=== PATIENT | female | born 1985 | race African-American/Black ===

== ENCOUNTER 2020-05-19 11:41 | Outpatient (RCR) | payer MEDICAID ==
[~2020-05-19] VITALS: Ht 152 cm; Wt 43.1 kg
== END 2020-05-19 11:43 | disposition home or self-care (01) ==
LOC: PREOP 11:41
PROVIDERS: ATTEND Obstetrics & Gynecology
DX: Z01.818 Encounter for other preprocedural examination (principal)

== ENCOUNTER 2020-05-24 11:06 | Inpatient (IN) | payer MEDICAID ==
[~2020-05-24] VITALS: Ht 152 cm; Wt 43.1 kg
[2020-05-24] VITALS (12 sets, daily range): BP systolic 131–157; BP diastolic 92–114
[2020-05-24] MEDS ORDERED: metroNIDAZOLE 500MG/100ML IVPB 100 ML IV ONE (11:15)
[2020-05-24] MEDS ORDERED: LACTATED RINGERS 1,000 ML IV PRN (11:15)
[2020-05-24] MEDS ORDERED: ceFAZolin INJECTION 1,000 MG in WATER (STERILE) FOR INJECTION 10 ML IV ONE (11:15)
[2020-05-24] MEDS ORDERED: BUPIVACAINE 0.25% 30 ML (SENSORCAINE) VIAL ONE (11:19)
[2020-05-24] MEDS ORDERED: CATHETER FLUSH 10 ML SYR IV PRN (11:30)
--- NOTE | 2020-05-24 11:31 | Progress Note-Pre Operative ---
Pre-Operative Progress Note H&P Reviewed The H&P was reviewed, patient examined and no changes noted. Date Seen by Provider: May 24, 2020 Time Seen by Provider: 11:30 Date H&P Reviewed: May 24, 2020 Time H&P Reviewed: 11:25 Pre-Operative Diagnosis: Fibroid uterus, CPP KARI CALDWELL DO May 24, 2020 11:31
[2020-05-24] MEDS ORDERED: FAMOTIDINE 20MG/2ML IV (PEPCID) ONE (11:37)
[2020-05-24] MEDS ORDERED: fentaNYL INJECTION 100 MCG/2 ML AMP ONE ×2 (11:38→14:07)
[2020-05-24] MEDS ORDERED: GLYCOPYRROLATE 0.2 MG/ML (ROBINUL) 2 ML VIAL ONE (11:38)
[2020-05-24] MEDS ORDERED: SEVOFLURANE (ULTANE) 15 ML INHAL SOLN ONE ×2 (11:38→13:33)
[2020-05-24] MEDS ORDERED: proPOfol 200 MG/20 ML (DIPRIVAN) VIAL IV ONE (11:38)
[2020-05-24] MEDS ORDERED: NEOSTIGMINE 3 MG/3 ML VIAL ONE (11:38)
[2020-05-24] MEDS ORDERED: LIDOCAINE PF 2% 5 ML (XYLOCAINE) VIAL ONE (11:38)
[2020-05-24] MEDS ORDERED: MIDAZOLAM 2 MG/2 ML (VERSED) VIAL ONE ×2 (11:38→11:47)
[2020-05-24] MEDS ORDERED: ROCURONIUM 10 MG/ML 5 ML SYRINGE IV ONE (11:38)
[2020-05-24] MEDS ORDERED: ONDANSETRON 4 MG/2 ML (SDV) Z0FRAN ONE ×2 (11:38)
[2020-05-24 11:42] LABS: BASOPHILS # (AUTO) 0.1 10^3/uL (0.0-0.1); BASOPHILS % (AUTO) 1 % (0-10); EOSINOPHILS # (AUTO) 0.4 10^3/uL (0.0-0.3); EOSINOPHILS % (AUTO) 5 % (0-10); HEMATOCRIT 47 % (35-52); HEMOGLOBIN 15.5 g/dL (11.5-16.0); LYMPHOCYTES # (AUTO) 1.7 10^3/uL (1.0-4.0); LYMPHOCYTES % (AUTO) 24 % (12-44); MEAN CORPUSCULAR HEMOGLOBIN 29 pg (25-34); MEAN CORPUSCULAR HGB CONC 33 g/dL (32-36); MEAN CORPUSCULAR VOLUME 89 fL (80-99); MONOCYTES # (AUTO) 0.7 10^3/uL (0.0-1.0); MONOCYTES % (AUTO) 9 % (0-12); NEUTROPHILS # (AUTO) 4.4 10^3/uL (1.8-7.8); NEUTROPHILS % (AUTO) 61 % (42-75); PLATELET COUNT 363 10^3/uL (130-400); WHITE BLOOD COUNT 7.3 10^3/uL (4.3-11.0)
--- NOTE | 2020-05-24 11:43 | Discharge Inst-Women's Service ---
Discharge Inst-Women's Serv Depart Medication/Instructions New, Converted or Re-Newed RX: RX on Chart Problems Reviewed?: Yes Consults/Follow Up Additional Follow Up: Yes Orders/Referrals Dr. Mendoza in 7-10 days and in 8 weeks Activity Activity: Activity as Tolerated Driving Instructions: You May Drive (do not drive while still requirng hydrocodone for pain control) NO SMOKING: NO SMOKING Nothing Inside Vagina: No Douching, No Bergman Diet Discharge Diet: No Restrictions Symptoms to Report to : Bleeding Excessive, Pain Increased, Fever Over 101 Degrees F, Vaginal Bleeding Increase, Questions/Concerns For Any Problems or Questions: Contact Your Physician Skin/Wound Care Infection Signs and Symptoms: Increased Redness, Foul Odor of Wound, Increased Drainage, Skin Itchy or Has a Rash, Increased Swelling, Temperature Above 101 F Operative Area Clean and Dry: Keep Incision Clean/Dry Stitches/Bertha/Dermabond: Dermabond, Care of Stitches Bathing Instructions: KARI Montero DO May 24, 2020 11:43
[2020-05-24] MEDS ORDERED: MIDAZOLAM 2 MG/2 ML (VERSED) VIAL IV ONE (11:45)
[2020-05-24] MEDS ORDERED: HYDR-34 PO (11:45)
[2020-05-24] MEDS ORDERED: HYDROmorphone 2 MG/ML VIAL (DILAUDID) IV PRN ×2 (11:45→14:00)
[2020-05-24] MEDS ORDERED: ZOLPIDEM 5 MG (AMBIEN) TAB PO PRN (11:45)
[2020-05-24] MEDS ORDERED: FAMOTIDINE 20MG/2ML IV (PEPCID) IV ONE (11:45)
[2020-05-24] MEDS ORDERED: CHLORASEPTIC LOZENGE MM PRN (11:45)
[2020-05-24] MEDS ORDERED: SIME80TA16 PO (11:45)
[2020-05-24] MEDS ORDERED: DCS100C PO (11:45)
[2020-05-24] MEDS ORDERED: ONDANSETRON 4 MG/2 ML (SDV) Z0FRAN IV PRN (11:45)
[2020-05-24] MEDS ORDERED: ANTACID SUSP 30 ML UDC (MYLANTA) PO PRN (11:45)
[2020-05-24] MEDS ORDERED: ONDANSETRON 4 MG/2 ML (SDV) Z0FRAN IV ONE (11:45)
[2020-05-24] MEDS ORDERED: IBUP-844 PO (11:45)
[2020-05-24] MEDS: LACTATED RINGERS 1,000 ML IV SCH ×4 (11:46→21:44)
[2020-05-24] MEDS ORDERED: RT-ALBUINH INH (12:12)
[2020-05-24] MEDS ORDERED: HYDROmorphone 2 MG/ML VIAL (DILAUDID) ONE (12:44)
[2020-05-24] MEDS ORDERED: ONDANSETRON 4 MG/2 ML (SDV) Z0FRAN IVP PRN (14:00)
[2020-05-24] MEDS ORDERED: fentaNYL INJECTION 100 MCG/2 ML AMP IVP ONE (14:00)
[2020-05-24] MEDS ORDERED: morphine INJ 10 MG/ML 1ML (SYR OR VIAL) IVP ONE (14:00)
[2020-05-24] MEDS ORDERED: MEPERIDINE (DEMEROL) INJ 50 MG/ML IVP ONE (14:00)
[2020-05-24] MEDS ORDERED: KETOROLAC 30 MG/ML VIAL ONE (14:22)
[2020-05-24] MEDS: KETOROLAC 30 MG/ML VIAL IV PRN ×2 (14:30→21:44)
--- NOTE | 2020-05-24 14:50 | NUR ---
Pt to room 304 via bed accompanied by PACU staff. This RN and Stephanie Rivera RN to bedside for report. Report rec'd from Tawanna Gomez RN. Pt awake and writhing in pain. Calf SCD's on and activated, Lambert catheter patent, draining clear yellow urine to dependent drainage. VS taken, IV fluids to pump. Assessment completed. Pt c/o significant pain just with RN moving blankets. Pt requiring much encouragement to get through assessment. Island dressing noted to be mostly saturated with bright red blood, area marked. No distention or induration noted. Ice pack to abd. Pt requesting carbonated beverage, sprite and water provided.
--- NOTE | 2020-05-24 15:20 | Consultation - Surgery ---
History of Present Illness History of Present Illness Patient Consulted On(dimitri/time) 05/24/20 15:14 Time Seen by Provider: 12:41 History of Present Illness Surgery asked to do intraoperative consult secondary to enterotomy. HPI: pt was undergoing Hysterectomy for painful bleeding. Pt was intubated and asleep; unable to obtain anything from pt. During Robotic Hysterectomy procedure, initial trochar was placed into bowel. Allergies and Home Medications Allergies Coded Allergies: Latex, Natural Rubber (Verified Allergy, Severe, ANAPHYLAXIS, 05/19/20) Home Medications Albuterol Sulfate 1 Puff Puff, 2 PUFF INH Q4H, (Reported) 1 PUFF = 90 MCG Docusate Sodium 100 Mg Capsule, 100 MG PO BID PRN for CONSTIPATION-1ST LINE Prescribed by: KARI CALDWELL on 05/24/20 1145 Hydrocodone Bit/Acetaminophen 1 Ea Tablet, 2 EA PO Q6H PRN for Pain-See Instructions Prescribed by: KARI CALDWELL on 05/24/20 1145 Ibuprofen 600 Mg Tablet, 600 MG PO Q6H Prescribed by: KARI CALDWELL on 05/24/20 1145 Simethicone 80 Mg Tab.chew, 40 MG PO TID PRN for INDIGESTION 2ND LINE Prescribed by: KARI CALDWELL on 05/24/20 1145 Patient Home Medication List Home Medication List Reviewed: Yes Past Jeuwrmm-Tcshlx-Ximtsf Hx Patient Social History Alcohol Use: Occasionally Uses Recreational Drug Use: No Smoking Status: Current Everyday Smoker Type Used: Cigarettes 2nd Hand Smoke Exposure: Yes Recent Foreign Travel: No Contact w/Someone Who Travel: No Recent Hopitalizations: No Immunizations Up To Date Date of Influenza Vaccine: May 19, 2019 Seasonal Allergies Seasonal Allergies: No Surgeries History of Surgeries: Yes (HEART X2 CHILD, INTESTINAL BLOCKAGE X3 CHILD, BACK X2, HAND) Respiratory History of Respiratory Disorde: Yes Respiratory Disorders: Asthma Cardiovascular History of Cardiac Disorders: Yes (FOLLOWS WITH DR. CUMMINGS, MILD PH) Cardiac Disorders: Valvular Heart Disease Neurological History of Neurological Disord: No Reproductive System Sexually Transmitted Disease: No HIV/AIDS: No Female Reproductive Disorders: Menstrual Problems Genitourinary History of Genitourinary Disor: Yes Genitourinary Disorders: UTI-Chronic Gastrointestinal History of Gastrointestinal Di: Yes Gastrointestinal Disorders: Chronic Constipation, Chronic Diarrhea Musculoskeletal History of Musculoskeletal Dis: Yes Musculoskeletal Disorders: Arthritis, Chronic Back Pain Endocrine History of Endocrine Disorders: No HEENT History of HEENT Disorders: No Loss of Vision: Denies Hearing Impairment: Denies Cancer History of Cancer: No Psychosocial History of Psychiatric Problem: Yes Behavioral Health Disorders: Anxiety, Depression Integumentary History of Skin or Integumenta: No Blood Transfusions History of Blood Disorders: No Adverse Reaction to a Blood Tr: No (HAS HAD BLOOD WITH NO REACTION) Family Medical History Significant Family History: Diabetes (parents ), Hypertension (parents), Stroke Review of Systems-General ROS-Unable to Obtain: pt intubated Physical Exam-General Problems Physical Exam Vital Signs Vital Signs - First Documented 05/24/20 11:07 Temp 36.8 Pulse 104 Resp 20 B/P (MAP) 145/109 (121) Pulse Ox 100 O2 Delivery Room Air Capillary Refill : General Appearance: WD/WN, no apparent distress HEENT: PERRL/EOMI, other (intubated) Respiratory: lungs clear, normal breath sounds, no respiratory distress, no accessory muscle use Cardiovascular: regular rate, rhythm, no murmur Gastrointestinal: other (abdomen open, for hysterectomy) Extremities: no pedal edema Skin: normal color, warm/dry Data Review Labs Laboratory Tests 05/24/20 11:20: White Blood Count 7.3, Red Blood Count 5.27H, Hemoglobin 15.5, Hematocrit 47, Mean Corpuscular Volume 89, Mean Corpuscular Hemoglobin 29, Mean Corpuscular Hemoglobin Concent 33, Red Cell Distribution Width 13.6, Platelet Count 363, Mean Platelet Volume 11.0, Immature Granulocyte % (Auto) 0, Neutrophils (%) (Auto) 61, Lymphocytes (%) (Auto) 24, Monocytes (%) (Auto) 9, Eosinophils (%) (Auto) 5, Basophils (%) (Auto) 1, Neutrophils # (Auto) 4.4, Lymphocytes # (Auto) 1.7, Monocytes # (Auto) 0.7, Eosinophils # (Auto) 0.4H, Basophils # (Auto) 0.1, Immature Granulocyte # (Auto) 0.0 Assessment/Plan Assessment/Plan Assessment/Plan Iatrogenic Enterotomy Adhesions Plan primary closure of enterotomy, takedown of adhesion and appendectomy. JORDIN LOPEZ DO May 24, 2020 15:20
--- NOTE | 2020-05-24 15:22 | Progress Note-Post Operative ---
Post-Operative Progess Note Surgeon (s)/Chef German (s) Surgeon JORDIN LOPEZ DO Chef German: Kelly Pre-Operative Diagnosis Iatrogenic Enterotomy, Adhesions Post-Operative Diagnosis same Procedure & Operative Findings Date of Procedure 05/24/20 Procedure Performed/Findings Primary repair of Enterotomy Appendectomy Anesthesia Type GET Estimated Blood Loss Estimated blood loss (mL): scant Specimens/Packing Specimens Removed appendix JORDIN LOPEZ DO May 24, 2020 15:22
--- NOTE | 2020-05-24 15:40 | NUR ---
Dr Mendoza on unit, notified of pt c/o significant pain, writhing in pain, dressing saturated. to room. ABD pad and abd binder applied to pt abdomen per RN and Dr. Pt verbalizes a little relief but still c/o significant pain and that "something ain't right." RN's and Dr. Mendoza remain at bedside. Order rec'd for .25mg ativan at this time.
[2020-05-24] MEDS ORDERED: LORazepam INJ 2 MG/ML (ATIVAN) VIAL ONE (15:52)
[2020-05-24] MEDS ORDERED: LORazepam INJ 2 MG/ML (ATIVAN) VIAL IVP PRN (16:00)
--- NOTE | 2020-05-24 16:05 | NUR ---
Pt calming after ativan dosage. Spo2 noted to drop to lower 80%'s but would rise when pt stimulated to take a deep breath. 2L supplement O2 provided via nasal cannula at this time. Pt Spo2 remains upper 90's-100%. Will continue to monitor.
--- NOTE | 2020-05-24 16:15 | NUR ---
Pt sleeping soundly, Spo2 remains 100%. No s/s of distress noted.
--- NOTE | 2020-05-24 16:40 | NUR ---
Pt continues sleeping. Spo2 remains 100%. Supplemental O2 D/C'd.
--- NOTE | 2020-05-24 18:00 | NUR ---
Pt continues sleeping soundly, VS taken. Pt assisted with repositioning. No needs or concerns voiced at this time.
--- NOTE | 2020-05-24 21:00 | NUR ---
report from ed CARROLL
--- NOTE | 2020-05-24 21:20 | NUR ---
RN to room, pt sleeping at this time, VS taken, pt starting to wake up, discussed plan of care with pt. Assisted pt with calling family. Fresh ice water and sprite given per pt request and jello. Pt remains on the phone as RN leaving room.
--- NOTE | 2020-05-24 23:00 | NUR ---
Pt given Algerian ice per request and assisted with position change, warmer blanket given.
--- NOTE | 2020-05-25 00:29 | OPERATIVE REPORT ---
DATE OF SERVICE: PREOPERATIVE DIAGNOSES: 1. A 35-year-old female with abnormal uterine bleeding. 2. Fibroid uterus. 3. Chronic pelvic pain. POSTOPERATIVE: DIAGNOSES: 1. A 35-year-old female with abnormal uterine bleeding. 2. Fibroid uterus. 3. Chronic pelvic pain. 4. Incidental enterotomy with extensive upper abdominal and periumbilical adhesions. SURGEON: Wili Mendoza DO COMMERCIAL MAKEUP ARTIST: Christal Spears DNP, who was necessary for manipulation and retraction throughout the procedure. Intraoperative consultation made to Dr. James Wiley. ANESTHESIA: General endotracheal. ESTIMATED BLOOD LOSS: 150 mL. URINE OUTPUT: 20 mL clear at the end of the procedure. FLUIDS: 1600 mL lactated Ringer's solution. PROCEDURES: Laparoscopic enterotomy with conversion to laparotomy, total abdominal hysterectomy and bilateral salpingectomy, weighing greater than 500 grams, enterotomy repair, appendectomy. SPECIMEN SENT: Appendix, uterus, cervix, bilateral fallopian tubes. INDICATIONS FOR PROCEDURE: This 35-year-old female was a consultation in my office for chronic pelvic pain. FINDINGS: Very large fibroid on ultrasound examination. The patient reported extensive pain, discomfort, bowel movements, especially down in her pelvis and reported that her bowels are rarely regular. I discussed with the patient removal of this fibroid uterus due to the size and discomfort that it was causing her. Risks of the procedure were discussed with the patient in detail including risk of bleeding, infection, damage to surrounding structures including, but not limited to bowel, bladder, ureter, kidneys, possible need for reoperation, postoperative complications that may occur, recovery timeframe involving the procedure, risks from anesthesia and even . After everything was discussed with the patient in detail, consent was obtained in the preoperative area, the patient was taken to the operating room. OPERATIVE REPORT IN DETAIL: Once in the operating room, anesthesia was found to be adequate, she was placed in dorsal lithotomy position, prepped and draped in normal sterile fashion. Timeout was performed. Lambert catheter was placed using sterile technique. A weighted speculum inserted to the patient's vagina. Right angle retractor was utilized. Cervix was grasped at 12 o'clock position using a long Allis clamp and 0 Vicryl suture was then placed in anterior lip of the cervix. I then selected 8 cm uterine manipulator tip and a 4 cm colpotomy ring. The manipulator tip was advanced into the cervix where the balloon was deployed inside the uterus and the colpotomy ring was advanced around the vaginal fornix after which I performed a change of gloves and took my attention to the abdomen where supraumbilically I infiltrated this area using 0.25% Marcaine and make an 8 mm incision with a knife and directed Veress needle through the incision until intraperitoneal placement was confirmed using the saline drop test. I proceeded with insufflation using CO2 gas. Opening pressure of 5 mmHg is noted. I proceeded to max pressure of 15 mmHg, at which point I removed the Veress needle and introduced an 8 mm blunt laparoscopic [place] trocar. Upon camera placement, I am able to visualize the lumen of the bowel, noting that I had performed the enterotomy with placement of my trocar. I decided at that point to perform a laparotomy and call for a surgical consult. I do a midline incision using a knife and carried down to the fascia using Bovie cautery. The fascial incision extended laterally using Bovie cautery, which exposes the peritoneum in midline after I dissected the rectus muscles laterally. The peritoneum was entered using blunt traction where the insufflation was then released through the trocar site. I placed an Mike ring retractor, which offers excellent lateral sidewall retraction and begin the procedure as I am waiting for the general surgeon. I began the procedure with performing the hysterectomy. Performed the following dissection bilaterally. Starting at the uteroovarian ligament, I bipolar cauterized and transected using LigaSure impact device. I then the anterior and posterior leaflets of the broad ligament. Anterior leaflet was taken around the anterior vaginal fornix, posterior leaflet was taken around to the posterior vaginal fornix. In doing so, I am able to skeletonize the uterine vessels laterally, which I bipolar cauterized and transected using the LigaSure device. I am easily able to palpate the anterior vaginal fornix because of my Montse uterine manipulator. I therefore created a colpotomy at 12 o'clock position using the Bovie cautery, took this circumferentially around the vaginal fornix, amputating the cervix away from the vagina. The entire specimen was then removed through the abdominal opening. The fallopian tubes were also removed using bipolar cautery down the mesosalpinx, bipolar cauterizing, sealing and transecting using the LigaSure device after which there was no active bleeding noted from any of my dissection planes or pedicles. I then closed the vaginal cuff using 0 Vicryl suture in interrupted [id number] fashion. Once the vagina was reapproximated, Dr. Wiley arrived and performed an appendectomy and repair of enterotomy. After he has done with his portion of the procedure, I copiously irrigated the pelvis using normal saline. There was no active bleeding noted from any of my dissection planes. I placed FloSeal hemostatic agent over all my planes of dissection, after which I had the patient taken out of steep Trendelenburg and proceeded with closing the fascia peritoneum, rectus muscles all in one layer using a #1 PDS loop in a Smead-Kaufman fashion. After this was reapproximated, the skin reapproximated using luis. Lap and sponge counts were correct at the end of the procedure. Instrument counts correct as well. Lambert catheter was left in place. One gram of Ancef and 500 mg of Flagyl were given preoperatively for infection prophylaxis. Job ID: [id number] DocumentID: [id number] Dictated Date: 05/24/2020 14:16:51 Training Development Manager Date: 05/25/2020 00:28:49 Dictated By: DO DELLA SANTIAGO
--- NOTE | 2020-05-25 01:59 | OPERATIVE REPORT ---
DATE OF SERVICE: 05/24/2020 PREOPERATIVE DIAGNOSIS: Iatrogenic enterotomy adhesions. POSTOPERATIVE DIAGNOSIS: Iatrogenic enterotomy adhesions. PROCEDURES: 1. Primary closure of enterotomy. 2. Appendectomy. SURGEON: James Wiley DO EMERGENCY PLANNING AND RESPONSE MANAGER: Dr. Mendoza. ANESTHESIA: General endotracheal tube. SPECIMEN: Appendix. BLOOD LOSS: Scant. FLUIDS: Per anesthesia. POSTOPERATIVE CONDITION: Stable. INDICATION FOR PROCEDURE: The patient is a 35-year-old female who was undergoing a robotic hysterectomy. Unfortunately, there was an iatrogenic enterotomy performed and needed to get this repaired. She had adhesions, this was another reason she had enterotomy. FINDINGS: The patient had an enterotomy in the small bowel, thought at first that it may have been in the large intestine. She also found to have adhesions and her appendix was stuck up to the falciform ligament covering, coming across the intestine where we needed to go to try and find the enterotomy. PROCEDURE NOTE: The patient was in the operating room. She was intubated. She was asleep undergoing hysterectomy. Unfortunately, while trying to place a trocar, an enterotomy was made. I was asked to consult and then help repair the small intestine. I scrubbed in. Assisted Dr. Mendoza while he was completing the hysterectomy and then once this was complete, started running the bowel from the sigmoid, taken down some adhesions, ran up the descending colon in the midline where Dr. Mendoza he had made an enterotomy. There were lot of adhesions, started taking these down and then encountered the cecum and the appendix going straight into the falciform trying to take, started taking these adhesions down, freeing the cecum up. Because appendix was attached to the falciform, elected to take this and remove it, perform an appendectomy, freeing it up off of the falciform and the mesoappendix and then once this was freed up with Bovie electrocautery, then across the base of the appendix, placed an Endo-SHANTELLE stapler, clamped and fired there by transecting the appendix. Then continued to take down the adhesions in the midline. Finally, able to find small bowel and find the enterotomy. There was no spillage of succuss or intestinal contents, had grasped this with a [place] when we found it and then finished taking down some adhesions. At this point, elected to close it primarily with 3-0 Vicryl, 2 [id number] sutures and 1 simple suture to close this. It closed nicely, copiously irrigated with normal saline, suctioned this out, looked around. There did not appear to be any spillage. The closure looked good and at this point, then allowed Dr. Mendoza to finish his procedure and close the abdomen. Job ID: [id number] DocumentID: [id number] Dictated Date: 05/24/2020 15:33:53 Toll Transmission Worker Date: 05/25/2020 01:58:40 Dictated By: JAMES WILEY DO
[2020-05-25 02:05] VITALS: BP 122/85
[2020-05-25] MEDS ORDERED: KETOROLAC 30 MG/ML VIAL ONE (03:10)
[2020-05-25] MEDS: LACTATED RINGERS 1,000 ML IV SCH ×2 (03:30→21:31)
[2020-05-25] MEDS: IBUPROFEN 600 MG (MOTRIN) TAB PO SCH ×2 (04:29→12:01)
[2020-05-25 06:40] VITALS: BP 121/78
--- NOTE | 2020-05-25 07:51 | Progress Note - Surgery ---
ROBBIN SHETH,MED STUDENT 05/25/20 0751: Subjective Date Seen by a Provider: May 25, 2020 Time Seen by a Provider: 07:15 Subjective/Events-last exam Patient states she is having 9/10 diffuse abdominal pain. She states that she is hungry this morning, though. She states she has not had a bowel movement and is not passing gas yet. She has not urinated since surgery or been up to walk yet either. Denies fever, chills, chest pain, shortness of breath, n/v. Review of Systems General: No Chills HEENT: No Head Aches Pulmonary: No Dyspnea, No Cough Cardiovascular: No: Chest Pain, Edema Gastrointestinal: Abdominal Pain (diffuse, 9/10), Constipation; No: Nausea, Vomiting, Diarrhea Genitourinary: Retention Neurological: No: Numbness, Confusion Objective Exam Vital Signs Date Time Temp Pulse Resp B/P (MAP) Pulse Ox O2 Delivery O2 Flow Rate FiO2 05/25/20 06:40 36.7 81 18 121/78 (92) 97 Room Air 05/25/20 02:05 36.8 79 16 122/85 (97) 98 Room Air 05/24/20 21:20 36.4 98 16 153/110 (124) 98 Room Air 05/24/20 21:20 Room Air 05/24/20 18:00 36.8 97 16 155/114 (128) 100 Room Air 05/24/20 15:15 73 20 143/106 (118) 100 Room Air 05/24/20 14:50 36.4 16 151/99 (116) 99 Room Air 05/24/20 14:50 Room Air 05/24/20 14:50 Room Air 05/24/20 14:50 35.9 70 18 143/103 (116) 100 Room Air 05/24/20 14:40 Room Air 05/24/20 14:40 16 151/99 (116) 99 Room Air 05/24/20 14:30 Room Air 05/24/20 14:30 20 157/101 (119) 100 Room Air 05/24/20 14:20 24 157/100 (119) 100 OxyMask 2 05/24/20 14:15 OxyMask 4 05/24/20 14:10 24 149/105 (120) 100 OxyMask 4 05/24/20 14:00 OxyMask 6 05/24/20 14:00 26 143/94 (110) 100 OxyMask 6 05/24/20 13:50 16 131/92 (105) 100 OxyMask 8 05/24/20 13:48 OxyMask 8 05/24/20 13:48 36.1 16 131/92 (105) 100 OxyMask 8 05/24/20 11:07 36.8 104 20 145/109 (121) 100 Room Air I & O 05/25/20 07:00 Intake Total 4810 ml Output Total 770 ml Balance 4040 ml Capillary Refill : Less Than 3 SecondsLess Than 3 Seconds General Appearance: No Apparent Distress, Thin HEENT: PERRL/EOMI, Moist Mucous Membranes Neck: Supple Respiratory: Lungs Clear, No Accessory Muscle Use, No Respiratory Distress Cardiovascular: Regular Rate, Rhythm, No Edema, No Murmur Peripheral Pulses: 2+ Dorsalis Pedis (R), 2+ Left Dors-Pedis (L), 2+ Radial Pulses (R), 2+ Radial Pulses (L) Gastrointestinal: soft, abnormal bowel sounds (decreased); No distended; tenderness (diffuse), other (clean dressing to midline incision, no drainage noted) Extremity: Normal Capillary Refill, No Calf Tenderness, No Pedal Edema Neurologic/Psychiatric: Alert, Oriented x3, Normal Mood/Affect Skin: Normal Color, Warm/Dry Lymphatic: No Adenopathy Results Lab Laboratory Tests 05/24/20 11:20: White Blood Count 7.3, Red Blood Count 5.27H, Hemoglobin 15.5, Hematocrit 47, Mean Corpuscular Volume 89, Mean Corpuscular Hemoglobin 29, Mean Corpuscular Hemoglobin Concent 33, Red Cell Distribution Width 13.6, Platelet Count 363, Mean Platelet Volume 11.0, Immature Granulocyte % (Auto) 0, Neutrophils (%) (Auto) 61, Lymphocytes (%) (Auto) 24, Monocytes (%) (Auto) 9, Eosinophils (%) (Auto) 5, Basophils (%) (Auto) 1, Neutrophils # (Auto) 4.4, Lymphocytes # (Auto) 1.7, Monocytes # (Auto) 0.7, Eosinophils # (Auto) 0.4H, Basophils # (Auto) 0.1, Immature Granulocyte # (Auto) 0.0 Assessment/Plan Assessment/Plan Assessment/Plan s/p iatrogenic enterotomy with subsequent primary closure and appendectomy- post op day one s/p total abdominal hysterectomy with BSO- post op day one Postoperative urinary retention- continue to monitor IV pain control- switch to oral if tolerated Clear liquid diet Encourage ambulation and IS JAMES WILEY DO 05/25/20 1213: Subjective Time Seen by a Provider: 12:07 Subjective/Events-last exam Pt seen and examined, having sharp shooting pain. Review of Systems Pulmonary: No Dyspnea, No Cough Cardiovascular: No: Chest Pain Gastrointestinal: Abdominal Pain (diffuse, 04/22); No: Nausea, Vomiting Objective Exam General Appearance: Mild Distress HEENT: PERRL/EOMI, Moist Mucous Membranes Respiratory: Lungs Clear, No Accessory Muscle Use, No Respiratory Distress Cardiovascular: Regular Rate, Rhythm, No Murmur Gastrointestinal: soft, tenderness (diffuse), other (clean dressing to midline incision, no drainage noted, abdominal binder in place) Assessment/Plan Assessment/Plan Assessment/Plan S/P Repair of Enterotomy Will add Toradol scheduled, pt encouraged to ambulate and use IS. Supervisory-Addendum Brief Verification & Attestation Participated in pt care: history, MDM, physical Personally performed: exam, history, MDM Care discussed with: Medical Student Procedures: n/a Verification and Attestation of Medical Student E/M Service A medical student performed and documented this service. I then reviewed and verified all information documented by the medical student and made modifications to such information, when appropriate. I personally performed a physical exam, medical decision making and then discussed any differences between the notes and made revisions as necessary to create one note. James Wiley , 05/25/20 , 12:13 ROBBIN SHETH,MED STUDENT May 25, 2020 07:51 JAMES WILEY DO May 25, 2020 12:13
[2020-05-25 08:24] LABS: BASOPHILS % (AUTO) 0 % (0-10); EOSINOPHILS % (AUTO) 0 % (0-10); HEMATOCRIT 35 % (35-52); HEMOGLOBIN 11.8 g/dL (11.5-16.0); LYMPHOCYTES # (AUTO) 0.9 10^3/uL (1.0-4.0); LYMPHOCYTES % (AUTO) 7 % (12-44); MEAN CORPUSCULAR HEMOGLOBIN 29 pg (25-34); MEAN CORPUSCULAR HGB CONC 33 g/dL (32-36); MEAN CORPUSCULAR VOLUME 88 fL (80-99); MEAN PLATELET VOLUME 10.7 fL (9.0-12.2); MONOCYTES # (AUTO) 0.7 10^3/uL (0.0-1.0); MONOCYTES % (AUTO) 6 % (0-12); NEUTROPHILS # (AUTO) 10.9 10^3/uL (1.8-7.8); NEUTROPHILS % (AUTO) 86 % (42-75); PLATELET COUNT 227 10^3/uL (130-400); WHITE BLOOD COUNT 12.6 10^3/uL (4.3-11.0)
[2020-05-25] MEDS: DOCUSATE SODIUM 100 MG (COLACE) CAP PO PRN ×2 (08:26→22:00)
[2020-05-25] MEDS: SIMETHICONE 80 MG (MYLICON) CHEW PO PRN ×2 (08:26→16:29)
[2020-05-25] MEDS: HYDROcodone/APAP 7.5 MG/325 MG (LORTAB, LORCET PLUS) TABLET PO PRN ×3 (08:26→22:00)
[2020-05-25 08:30] VITALS: BP 118/89
--- NOTE | 2020-05-25 08:30 | NUR ---
Pt out of bed - assisted back to bed. Did not attempt to void. 0840 After assessment pt decided she would attempt to void since this RN was present. Ambulated 50 mls. Pt dramatic - but also rates pain 9. Lortab tabs 2 given. Bilateral breathe sounds noted with wheezing. Attempting to cough - with minimal effort due to pain. Pt does smoke and have asthma. Called RT for IS. Hypoactive bowel sounds note. Pt states she is passing small amount of gas.
[2020-05-25 08:55] LABS: BAND NEUTROPHILS 2 %; BASOPHILS % (MANUAL) 0 %; EOSINOPHILS % (MANUAL) 0 %; LYMPHOCYTES % (MANUAL) 6 %; MONOCYTES % (MANUAL) 2 %; NEUTROPHILS % (MANUAL) 90 %; RBC MORPH NORMAL
--- NOTE | 2020-05-25 10:00 | Anesthesia-General Post-Op ---
General Patient Condition Mental Status/LOC: Same as Preop Cardiovascular: Satisfactory Nausea/Vomiting: Absent Respiratory: Satisfactory Pain: Controlled Complications: Absent Post Op Complications Complications None Follow Up Care/Instructions Patient Instructions None needed. Anesthesia/Patient Condition Patient Condition Patient is doing well, no complaints, stable vital signs, no apparent adverse anesthesia problems. No complications reported per nursing. JESUS ESCOBEDO CRNA May 25, 2020 10:00
--- NOTE | 2020-05-25 10:00 | Progress Note ---
Standard Progress Note Progress Notes/Assess & Plan Date Seen by a Provider: May 25, 2020 Time Seen by a Provider: 07:50 Progress/Assessment & Plan Patient doing well this AM after laparoscopy conversion to laparotomy due to enterotomy with trocar placement. Reports minimal vaginal bleeding. Pain better controlled this am. Reports tolerating CLD. Vital Sign - Last 24 Hours 05/24/20 05/24/20 05/24/20 05/24/20 11:07 13:48 13:48 13:50 Temp 36.8 36.1 Pulse 104 Resp 20 16 16 B/P (MAP) 145/109 (121) 131/92 (105) 131/92 (105) Pulse Ox 100 100 100 O2 Delivery Room Air OxyMask OxyMask OxyMask O2 Flow Rate 8 8 8 05/24/20 05/24/20 05/24/20 05/24/20 14:00 14:00 14:10 14:15 Resp 26 24 B/P (MAP) 143/94 (110) 149/105 (120) Pulse Ox 100 100 O2 Delivery OxyMask OxyMask OxyMask OxyMask O2 Flow Rate 6 6 4 4 05/24/20 05/24/20 05/24/20 05/24/20 14:20 14:30 14:30 14:40 Resp 24 20 16 B/P (MAP) 157/100 (119) 157/101 (119) 151/99 (116) Pulse Ox 100 100 99 O2 Delivery OxyMask Room Air Room Air Room Air O2 Flow Rate 2 05/24/20 05/24/20 05/24/20 05/24/20 14:40 14:50 14:50 14:50 Temp 35.9 Pulse 70 Resp 18 B/P (MAP) 143/103 (116) Pulse Ox 100 O2 Delivery Room Air Room Air Room Air Room Air 05/24/20 05/24/20 05/24/20 05/24/20 14:50 15:15 18:00 21:20 Temp 36.4 36.8 Pulse 73 97 Resp 16 20 16 B/P (MAP) 151/99 (116) 143/106 (118) 155/114 (128) Pulse Ox 99 100 100 O2 Delivery Room Air Room Air Room Air Room Air 05/24/20 05/25/20 05/25/20 21:20 02:05 06:40 Temp 36.4 36.8 36.7 Pulse 98 79 81 Resp 16 16 18 B/P (MAP) 153/110 (124) 122/85 (97) 121/78 (92) Pulse Ox 98 98 97 O2 Delivery Room Air Room Air Room Air Intake and Output 0 05/24/20 05/24/20 05/25/20 15:00 23:00 07:00 Intake Total 2110 ml 1200 ml 1500 ml Output Total 270 ml 200 ml 300 ml Balance 1840 ml 1000 ml 1200 ml Laboratory Tests Test 05/24/20 11:20 05/25/20 07:54 Range/Units White Blood Count 7.3 12.6 H 4.3-11.0 10^3/uL Red Blood Count 5.27 H 4.03 3.80-5.11 10^6/uL Hemoglobin 15.5 11.8 # 11.5-16.0 g/dL Hematocrit 47 35 35-52 % Mean Corpuscular Volume 89 88 80-99 fL Mean Corpuscular Hemoglobin 29 29 25-34 pg Mean Corpuscular Hemoglobin Concent 33 33 32-36 g/dL Red Cell Distribution Width 13.6 13.2 10.0-14.5 % Platelet Count 363 227 130-400 10^3/uL Mean Platelet Volume 11.0 10.7 9.0-12.2 fL Immature Granulocyte % (Auto) 0 0 % Neutrophils (%) (Auto) 61 86 H 42-75 % Lymphocytes (%) (Auto) 24 7 L 12-44 % Monocytes (%) (Auto) 9 6 0-12 % Eosinophils (%) (Auto) 5 0 0-10 % Basophils (%) (Auto) 1 0 0-10 % Neutrophils # (Auto) 4.4 10.9 H 1.8-7.8 10^3/uL Lymphocytes # (Auto) 1.7 0.9 L 1.0-4.0 10^3/uL Monocytes # (Auto) 0.7 0.7 0.0-1.0 10^3/uL Eosinophils # (Auto) 0.4 H 0.0 0.0-0.3 10^3/uL Basophils # (Auto) 0.1 0.0 0.0-0.1 10^3/uL Immature Granulocyte # (Auto) 0.0 0.0 0.0-0.1 10^3/uL Neutrophils % (Manual) 90 % Lymphocytes % (Manual) 6 % Monocytes % (Manual) 2 % Eosinophils % (Manual) 0 % Basophils % (Manual) 0 % Band Neutrophils 2 % Blood Morphology Comment NORMAL Incision left with dressing and binder on, due to wound seepage yesterday. Diagnosis POD 1 VALERIE with bilateral salpingectomy after failed laparoscopic attempt and enterotomy repair Acute blood loss anemia P: Advance diet to regular later today Encourage ambulation Remove dressing this afternoon IS use Lambert cath out. KARI CALDWELL DO May 25, 2020 10:00
[2020-05-25 11:55] VITALS: BP 124/85
--- NOTE | 2020-05-25 12:30 | NUR ---
Resting more comfortably. Denies needs to void. Encouraged drinking.
--- NOTE | 2020-05-25 15:00 | NUR ---
Awakened pt to ambulate and void. Voided 150ml, scant amt dark red vaginal bleeding. Ambulated from room to desk x 2. Tolerated activity well. Encouraged to drink. Gave nissa crackers and peanut butter as snack. Will advance diet to regular. No nausea.
--- NOTE | 2020-05-25 16:15 | NUR ---
Complaints of sudden and severe pain in abdomen. Pain meds recently given. This RN believes it to be gas pains. Gas X given.
[2020-05-25 16:20] VITALS: BP 120/82
--- NOTE | 2020-05-25 17:18 | NUR ---
Visiting on phone with family. Appears comfortable.
--- NOTE | 2020-05-25 17:30 | NUR ---
Ambulated in hallway without assistance. 1739 Complains of nausea. Zofran IV given.
[2020-05-25] MEDS: KETOROLAC 30 MG/ML VIAL IVP SCH ×2 (17:36→21:31)
[2020-05-25 21:50] VITALS: BP 124/67
[2020-05-26] MEDS: KETOROLAC 30 MG/ML VIAL IVP SCH ×2 (01:45→08:07)
[2020-05-26 04:00] VITALS: BP 90/55
[2020-05-26] MEDS: HYDROcodone/APAP 7.5 MG/325 MG (LORTAB, LORCET PLUS) TABLET PO PRN ×3 (05:24→14:22)
--- NOTE | 2020-05-26 07:34 | Progress Note - Surgery ---
ROBBIN SHETH,MED STUDENT 05/26/20 0734: Subjective Date Seen by a Provider: May 26, 2020 Time Seen by a Provider: 07:20 Subjective/Events-last exam Patient sleeping comfortably this morning. She states she has not had a bowel movement yet but is passing gas. She states she also has sharp abdominal pains when passing gas. Tolerating a regular diet without nausea/vomiting. Review of Systems General: No Chills HEENT: No Head Aches Pulmonary: No Dyspnea, No Cough Cardiovascular: No: Chest Pain, Edema Gastrointestinal: Abdominal Pain; No: Nausea, Vomiting Genitourinary: No Dysuria, No Retention Neurological: No: Weakness, Numbness Objective Exam Vital Signs Date Time Temp Pulse Resp B/P (MAP) Pulse Ox O2 Delivery O2 Flow Rate FiO2 05/26/20 04:00 37.0 66 16 90/55 (67) 95 Room Air 05/25/20 21:50 Room Air 05/25/20 21:50 37.2 78 16 124/67 (86) 97 Room Air 05/25/20 16:20 37.3 73 16 120/82 (95) Room Air 05/25/20 12:01 36.8 05/25/20 11:55 36.8 77 16 124/85 (98) 100 Room Air 05/25/20 11:44 Room Air 05/25/20 08:30 98 Room Air 05/25/20 08:30 37.3 97 20 118/89 (99) 98 Room Air I & O 05/26/20 07:00 Intake Total 740 ml Output Total 800 ml Balance -60 ml Capillary Refill : Less Than 3 SecondsNONE General Appearance: No Apparent Distress, Mild Distress HEENT: PERRL/EOMI, Moist Mucous Membranes Respiratory: Lungs Clear, No Accessory Muscle Use, No Respiratory Distress Cardiovascular: Regular Rate, Rhythm, No Murmur Peripheral Pulses: 2+ Dorsalis Pedis (R), 2+ Left Dors-Pedis (L), 2+ Radial Pulses (R), 2+ Radial Pulses (L) Gastrointestinal: soft, tenderness (diffuse), other (midline abdmonial incision c/d/i) Extremity: Normal Capillary Refill, No Calf Tenderness, No Pedal Edema Neurologic/Psychiatric: Alert, Oriented x3, Normal Mood/Affect Skin: Normal Color, Warm/Dry Lymphatic: No Adenopathy Results Lab Laboratory Tests 10/13/20 07:54: White Blood Count 12.6H, Red Blood Count 4.03, Hemoglobin 11.8#, Hematocrit 35, Mean Corpuscular Volume 88, Mean Corpuscular Hemoglobin 29, Mean Corpuscular He moglobin Concent 33, Red Cell Distribution Width 13.2, Platelet Count 227, Mean Platelet Volume 10.7, Immature Granulocyte % (Auto) 0, Neutrophils (%) (Auto) 86H, Lymphocytes (%) (Auto) 7L, Monocytes (%) (Auto) 6, Eosinophils (%) (Auto) 0, Basophils (%) (Auto) 0, Neutrophils # (Auto) 10.9H, Lymphocytes # (Auto) 0.9L , Monocytes # (Auto) 0.7, Eosinophils # (Auto) 0.0, Basophils # (Auto) 0.0, Immature Granulocyte # (Auto) 0.0, Neutrophils % (Manual) 90, Lymphocytes % (Manual) 6, Monocytes % (Manual) 2, Eosinophils % (Manual) 0, Basophils % (Manual) 0, Band Neutrophils 2, Blood Morphology Comment NORMAL Microbiology 05/24/20 MRSA Screen - Final, Complete MRSA not isolated Assessment/Plan Assessment/Plan Assessment/Plan s/p iatrogenic enterotomy with subsequent primary closure and appendectomy- post op day 2 s/p total abdominal hysterectomy with bilateral salpingectomy- post op day 2 Continue oral pain control Normal diet Encourage ambulation and IS JAMES WILEY DO 05/26/20 1338: Subjective Time Seen by a Provider: 12:50 Subjective/Events-last exam Pt seen and examined, states pain is slightly better and tolerating diet. Review of Systems General: No Chills Pulmonary: No Dyspnea, No Cough Gastrointestinal: Abdominal Pain; No: Nausea, Vomiting Objective Exam General Appearance: No Apparent Distress, WD/WN Respiratory: Lungs Clear, No Accessory Muscle Use, No Respiratory Distress Cardiovascular: Regular Rate, Rhythm, No Murmur Gastrointestinal: soft, tenderness (mostly at incision), other (midline abdmonial incision c/d/i) Assessment/Plan Assessment/Plan Assessment/Plan S/P Repair of enterotomy Ok to send home and f/u in my office in a week. Supervisory-Addendum Brief Verification & Attestation Participated in pt care: history, MDM, physical Personally performed: exam, history, MDM Care discussed with: Medical Student Procedures: n/a Verification and Attestation of Medical Student E/M Service A medical student performed and documented this service. I then reviewed and verified all information documented by the medical student and made modif ications to such information, when appropriate. I personally performed a physical exam, medical decision making and then discussed any differences between the notes and made revisions as necessary to create one note. James Wiley , 05/26/20 , 13:38 ROBBIN SHETH,MED STUDENT May 26, 2020 07:34 JAMES WILEY DO May 26, 2020 13:38
--- NOTE | 2020-05-26 08:00 | NUR ---
Dr. Mendoza at bedside. Discussing plan of care, plans to discharge this afternoon.
[2020-05-26 08:07] VITALS: BP 129/81
[2020-05-26] MEDS: DOCUSATE SODIUM 100 MG (COLACE) CAP PO PRN (08:07)
--- NOTE | 2020-05-26 08:21 | Progress Note ---
Standard Progress Note Progress Notes/Assess & Plan Date Seen by a Provider: May 26, 2020 Time Seen by a Provider: 08:10 Progress/Assessment & Plan Patient doing better today after laparoscopy conversion to laparotomy due to enterotomy with trocar placement. Reports minimal vaginal bleeding. Pain better controlled this am. Reports tolerating regular. She is ambulating and voiding freely. Vital Sign - Last 24 Hours 05/25/20 05/25/20 05/25/20 05/25/20 08:30 08:30 11:44 11:55 Temp 37.3 36.8 Pulse 97 77 Resp 20 16 B/P (MAP) 118/89 (99) 124/85 (98) Pulse Ox 98 98 100 O2 Delivery Room Air Room Air Room Air Room Air 05/25/20 05/25/20 05/25/20 05/25/20 12:01 16:20 21:50 21:50 Temp 36.8 37.3 37.2 Pulse 73 78 Resp 16 16 B/P (MAP) 120/82 (95) 124/67 (86) Pulse Ox 97 O2 Delivery Room Air Room Air Room Air 05/26/20 05/26/20 04:00 08:07 Temp 37.0 37.5 Pulse 66 95 Resp 16 18 B/P (MAP) 90/55 (67) 129/81 (97) Pulse Ox 95 100 O2 Delivery Room Air Room Air Intake and Output 05/25/20 05/25/20 05/26/20 15:00 23:00 07:00 Intake Total 540 ml 200 ml Output Total 300 ml 500 ml Balance 240 ml -300 ml Incision c/d/i luis in place Diagnosis POD 2 VALERIE with bilateral salpingectomy after failed laparoscopic attempt and enterotomy repair Acute blood loss anemia P: Encourage ambulation IV discontinue Discharge later today KARI CALDWELL DO May 26, 2020 08:21
[2020-05-26] MEDS ORDERED: FLU QUADRIvalent (3YOA+) 60 mcg/0.5 ml 2020-21 (AFLURIA) IM ONE (09:15)
--- NOTE | 2020-05-26 12:45 | NUR ---
Dr. Wiley here at pt bedside. Plan of care discussed, plans to discharge.
--- NOTE | 2020-05-26 13:31 | Discharge Inst-Surgical ---
Discharge Inst-Surgical Depart Medication/Instructions Patient Instructions Follow up Appt: Make appointment for 1 week. [phone] Instructions: No lifting greater than 20 pounds. No strenuous activity. May shower in 24 hours, no tub bath or soaking. Use incentive spirometer at home as directed. No Smoking Skin/Wound Care: May remove bandages in am. Symptoms to Report: Appetite Changes, Extremity Discoloration, Numbness/Tingling, Swelling Increased, Bleeding Excessive, Eyesight Changes, Pain Increased, Urine Color Change, Constipation(Persistent), Fever over 101 degree F, Pain/Pressure in chest, Urinating Difficulty, Cough Up/Vomit Blood, Heart Beat Irreg/Pounding, Pain/Pressure in jaw, Cramps in feet or legs, Lightheadedness, Pain/Pressure in shoulder, Diarrhea(Persistent), Memory Changes Suddenly, Questions/Concerns, Weight gain consecutive days, Dizziness/Fainting, Nausea/Vomiting, Shortness of Breath, Weight gain over 2 pounds If questions or concerns contact your physician Or seek help at emergency department. Activity Activity as Tolerated: Yes Activity Instructions: Avoid Stress to Incision Driving Instructions: No Driving/Refer to Dr. Banuelos Discharge Diet: No Restrictions Diet After 24 Hours: Clear Liquid if Nauseous If Any Problems/Questions/Issu: Contact Your Physician, Go to Emergency Room Skin/Wound Care Infection Signs and Symptoms: Increased Redness, Foul Odor of Wound, Increased Drainage, Skin Itchy or Has a Rash, Increased Swelling, Temperature Above 101 F Bathing Instructions: JORDIN Good DO May 26, 2020 13:31
--- NOTE | 2020-05-26 13:40 | NUR ---
Discharge instructions explained to pt with copy provided. Pt verbalizes understanding and signs to verify. No concerns voiced at this time.
[2020-05-26 14:25] VITALS: BP 124/84
== END 2020-05-26 15:30 | disposition home or self-care (01) | DRG 742 ==
LOC: SDC 11:06 → WS 13:52
PROVIDERS: ADMIT Obstetrics & Gynecology; ATTEND Obstetrics & Gynecology
PROC: 0UB70ZZ Excision of Bilateral Fallopian Tubes, Open Approach (ICD-10-PCS; 2020-05-24)
PROC: 0DTJ0ZZ Resection of Appendix, Open Approach (ICD-10-PCS; 2020-05-24)
PROC: 0WJG4ZZ Inspection of Peritoneal Cavity, Percutaneous Endoscopic Approach (ICD-10-PCS; 2020-05-24)
PROC: 0DQ80ZZ Repair Small Intestine, Open Approach (ICD-10-PCS; 2020-05-24)
PROC: 0UT90ZZ Resection of Uterus, Open Approach (ICD-10-PCS; principal; 2020-05-24 12:02)
DX: D25.9 Leiomyoma of uterus, unspecified (principal); N99.71 Accidental puncture and laceration of a genitourinary system organ or structure during a genitourinary system procedure; D62 Acute posthemorrhagic anemia; G89.29 Other chronic pain; N73.6 Female pelvic peritoneal adhesions (postinfective); R33.9 Retention of urine, unspecified
CPT/HCPCS: 36415; 84703; 85007; 85025; 85027; 86850; 86900; 86901; 87081; 90686; 94664